=== PATIENT | male | born 1945 | race Caucasian/White ===

== ENCOUNTER 2016-07-09 21:42 | Emergency (ER) | payer BC, OTHER ==
[2016-07-09] MEDS ORDERED: DOXYCYCLINE MONOHYDRATE 25 MG/5 ML BOTTLE PO ONE (22:16)
--- NOTE | 2016-07-09 22:19 | PDOC ---
History of Present Illness - General Chief Complaint: Bite Stated Complaint: TICK BITE Time Seen by Provider: 07/09/16 22:02 History Source: Patient Exam Limitations: No Limitations - History of Present Illness Initial Comments: 07/09/16 22:17 This is a 70-year-old male who comes in complaining of a tick bite on his right posterior knee area. Patient is unsure how long the tick bite is been there however he said he was out in the [place] this [place] so thinks it may have been there all day. Patient otherwise is without complaints denies any headaches, fevers, body aches, rashes or any other symptoms. PAST MEDICAL HISTORY: no significant history PAST SURGICAL HISTORY: no significant history FAMILY HISTORY: no pertinant history SOCIAL HISTORY: Pt lives with family and is employed. MEDICATIONS: reviewed ALLERGIES: As per nursing notes Review of Systems General: No fevers or chills, no weakness, no weight loss HEENT: No change in vision. No sore throat,. No ear pain CardioVascular: No chest pain or shortness of breath Respiratory:No cough, or wheezing. Gastrointestinal: no nausea, vomitting, diarrhea or constipation, No rectal bleeding Genitourinary: No dysuria, hematuria, or frequency Musculoskeletal: No joint or muscle pain or swelling Neurologic: No headache, vertigo, dizziness or loss of consciousness Psychiatric: nor depression Skin: No rashes or easy bruising, tick bite as per history of present illness Endocrine: no increased thirst or abnormal weight change Allergic: no skin or latex allergy All other systems reviewed and normal GENERAL: The patient is awake, alert, and fully oriented, in no acute distress. HEAD: Normal with no signs of trauma. EYES: Pupils equal, round and reactive to light, extraocular movements intact, sclera anicteric, conjunctiva clear. EXTREMITIES: Normal range of motion, no edema. NEUROLOGICAL: Normal speech, normal gait. PSYCH: Normal mood, normal affect. SKIN: Warm, Dry, normal turgor, no rashes or lesions noted. There is a tick embedded in the posterior knee. Procedure: Tick removal Tick was removed without difficulty using a fine tipped tweezers. No mouthparts of body parts were left in the bite area. Patient tolerated well Assessment and plan: This is a 70-year-old male who comes in with a tick embedded in his knee that was removed without difficulty. Patient was given 200 mg of doxycycline prophylactically to prevent Lyme disease. Patient discharged home. Past History - Past Medical History Allergies/Adverse Reactions: Allergies Allergy/AdvReac Type Severity Reaction Status Date / Time Penicillins Allergy Unknown Verified 06/05/16 21:04 Home Medications: Ambulatory Orders Aspirin [Aspirin EC] 81 mg PO DAILY 06/05/16 Atenolol [Tenormin] 25 mg PO DAILY 06/05/16 Atorvastatin Ca [Lipitor] 10 mg PO DAILY 06/05/16 Losartan Potassium [Cozaar] 25 mg PO DAILY 06/05/16 Asthma: Yes (MILD) HTN: Yes Hypercholesterolemia: Yes - Surgical History Cholecystectomy: Yes - Psycho/Social/Smoking Cessation Hx Anxiety: No Suicidal Ideation: No Smoking History: Never smoked Hx Alcohol Use: No Drug/Substance Use Hx: No Substance Use Type: None *DC/Admit/Observation/Transfer Diagnosis at time of Disposition: Tick bite of lower leg Qualifiers: Encounter type: initial encounter Laterality: right Qualified Code(s): S80.861A - Insect bite (nonvenomous), right lower leg, initial encounter; W57.XXXA - Bitten or stung by nonvenomous insect and other nonvenomous arthropods, initial encounter - Discharge Dispostion Disposition: HOME Condition at time of disposition: Stable Admit: No - Patient Instructions Additional Instructions: Return to the emergency department immediately with ANY new, persistent or worsening symptoms. Continue any medications as previously prescribed by your physician. You should follow up with your primary doctor as soon as possible regarding today's emergency department visit. . Please make sure your doctor reviews the results of your emergency evaluation. Thank you for coming to the Emergency Department today for your care. It was a pleasure to see you today. Please note that your evaluation is INCOMPLETE until you follow-up with your doctor.
[2016-07-09 22:22] VITALS: BP 136/64; PULSE 87; TEMP 99; BMI 30.4
[2016-07-09] MEDS ORDERED: DOXYCYCLINE HYCLATE 100 MG CAPSULE PO ONE (22:29)
== END 2016-07-09 22:31 | disposition home or self-care (01) ==
LOC: FER 21:42
DX: S80.861A Insect bite (nonvenomous), right lower leg, initial encounter (principal); W57.XXXA Bitten or stung by nonvenomous insect and other nonvenomous arthropods, initial encounter; Y93.89 Activity, other specified; Y92.89 Other specified places as the place of occurrence of the external cause; J45.909 Unspecified asthma, uncomplicated; I10 Essential (primary) hypertension; E78.00 Pure hypercholesterolemia, unspecified; Z79.82 Long term (current) use of aspirin
CPT/HCPCS: 99281-25